=== PATIENT | female | born 1950 | race Caucasian/White ===

== ENCOUNTER 2020-12-29 21:55 | Inpatient (IN) ==
[2020-12-29 22:47] LABS: Basophils % 0.6 % (0.0-0.8); Eosinophils # 0.2 10*3/uL (0.0-0.87); Eosinophils % 2.2 % (0.00-10.9); Hematocrit 41.3 VOL% (35.7-47.0); Hemoglobin 13.4 GM/DL (12.0-16.0); Immature Granulocytes % 0.4 %; Immature Granulocytes Absolute 0.03 #; Lymphocytes % 29.7 % (21.3-54.2); Mean Corpuscular HGB Conc 32.4 GM/DL (32-36); Mean Corpuscular Volume 101.2 FL (87-102); Mean Platelet Volume 10.9 FL (9.6-12.0); Monocytes % 11.1 % (1.7-12.7); Platelet Count 215 T/CUMM (130-400); Red Blood Count 4.08 MC/CUMM (3.8-5.5); Red Cell Distribution Width 13.4 % (9.3-17.3); White Blood Count 6.8 T/CUMM (4-12)
[2020-12-29 23:06] LABS: Alanine Aminotransferase 12 U/L (13-56); Albumin 3.6 G/DL (3.4-5.0); Alkaline Phosphatase 77 U/L (45-117); Aspartate Amino Transferase 14 U/L (0-37); Bilirubin,Total < 0.39 MG/DL (0.20-1.00); Blood Urea Nitrogen 18 MG/DL (7-18); Calcium 9.2 MG/DL (8.5-10.1); Carbon Dioxide 35 MMOL/L (21-32); Estimated Glom Filtration Rate 67 ML/MIN; Glucose 85 MG/DL (74-106); Potassium 3.9 MMOL/L (3.5-5.1); Sodium 143 MMOL/L (136-145); Total Protein 6.6 G/DL (6.4-8.2)
[2020-12-29 23:32] LABS: PT Patient Result 10.9 SECS (10.5-12.0); Partial Thromboplastin Time 28.1 SECS (23.9-33.8)
[2020-12-30] MEDS ORDERED: MORPHINE 2 MG/1 ML SYRINGE IV STA (00:09)
[2020-12-30] MEDS ORDERED: ONDANSETRON 4 MG/2 ML VIAL IV STA (00:09)
[2020-12-30] MEDS ORDERED: MAGNESIUM SULF RIDER 2 GM/50 ML PREMIX IV PRN (01:18)
[2020-12-30] MEDS ORDERED: MAGNESIUM SULF RIDER 4 GM/100 ML PREMIX IV PRN (01:18)
[2020-12-30] MEDS ORDERED: DEXTROSE 50% 25 GM/50 ML VIAL IV PRN (01:18)
[2020-12-30] MEDS ORDERED: GLUCAGON 1 MG VIAL IM PRN (01:18)
[2020-12-30] MEDS ORDERED: guaiFENesin/DM ER 600-30 MG TABLET PO PRN (01:25)
[2020-12-30] MEDS ORDERED: POTASSIUM CHLORIDE RIDER 10 MEQ/100 ML PREMIX IV PRN (01:25)
[2020-12-30] MEDS ORDERED: ACETAMINOPHEN 325 MG TABLET PO PRN (01:25)
[2020-12-30] MEDS ORDERED: ONDANSETRON 4 MG/2 ML VIAL IV PRN (01:25)
[2020-12-30] MEDS ORDERED: HYDROmorphone 2 MG/1 ML VIAL IV PRN (01:25)
[2020-12-30] MEDS ORDERED: PNEUMOCOCCAL VACCINE (13 VALENT) 0.5 ML SYRINGE IM ONE (02:33)
[2020-12-30] MEDS ORDERED: INFLUENZA VIRUS VACCINE 0.5 ML SYRINGE IM ONE (02:33)
[2020-12-30] MEDS: PANTOPRAZOLE 40 MG VIAL IV SCH ×3 (02:33→20:35)
[2020-12-30] MEDS: SODIUM CHLORIDE 0.9% 1,000 ML IV SCH ×3 (02:36→23:22)
[2020-12-30] MEDS ORDERED: ZALEPLON 5 MG CAPSULE PO PRN (02:54)
[2020-12-30 05:18] LABS: Basophils % 0.4 % (0.0-0.8); Eosinophils # 0.2 10*3/uL (0.0-0.87); Eosinophils % 3.3 % (0.00-10.9); Hematocrit 36.4 VOL% (35.7-47.0); Hemoglobin 11.6 GM/DL (12.0-16.0); Immature Granulocytes % 0.4 %; Immature Granulocytes Absolute 0.03 #; Lymphocytes # 1.9 10*3/uL (1.4-4.0); Lymphocytes % 27.6 % (21.3-54.2); Mean Corpuscular HGB Conc 31.9 GM/DL (32-36); Mean Corpuscular Volume 103.1 FL (87-102); Mean Platelet Volume 11.4 FL (9.6-12.0); Monocytes % 10.4 % (1.7-12.7); Neutrophils % 57.9 % (38.7-73.9); Platelet Count 186 T/CUMM (130-400); Red Blood Count 3.53 MC/CUMM (3.8-5.5); Red Cell Distribution Width 13.5 % (9.3-17.3); White Blood Count 6.9 T/CUMM (4-12)
[2020-12-30 05:53] LABS: Alanine Aminotransferase 11 U/L (13-56); Albumin 2.9 G/DL (3.4-5.0); Alkaline Phosphatase 63 U/L (45-117); Aspartate Amino Transferase 12 U/L (0-37); Blood Urea Nitrogen 19 MG/DL (7-18); Calcium 8.2 MG/DL (8.5-10.1); Carbon Dioxide 27 MMOL/L (21-32); Estimated Glom Filtration Rate 83 ML/MIN; Glucose 93 MG/DL (74-106); HDL Cholesterol 57 MG/DL (40-60); Osmolality,Calculated 282.3 MOS/KG (273-304); Potassium 3.8 MMOL/L (3.5-5.1); Risk Ratio 1.89; Sodium 141 MMOL/L (136-145); Thyroid Stimulating Hormone < 0.005 uIU/ml (0.358-3.74); Total Protein 5.5 G/DL (6.4-8.2); Triglycerides 33 MG/DL (2-150); VLDL Cholesterol 6.6 MG/DL
[2020-12-30] MEDS: ALBUTEROL/IPRATROPIUM 3 ML NEB RESP TX SCH ×3 (07:22→19:25)
[2020-12-30 09:06] LABS: Hematocrit 40.6 VOL% (35.7-47.0); Hemoglobin 13.1 GM/DL (12.0-16.0)
[2020-12-30 15:12] LABS: Hematocrit 39.1 VOL% (35.7-47.0); Hemoglobin 12.5 GM/DL (12.0-16.0)
[2020-12-30 20:53] LABS: Hematocrit 38.5 VOL% (35.7-47.0); Hemoglobin 12.2 GM/DL (12.0-16.0)
[2020-12-31] MEDS: ALBUTEROL/IPRATROPIUM 3 ML NEB RESP TX SCH ×4 (01:16→19:37)
[2020-12-31 05:56] LABS: Basophils % 0.3 % (0.0-0.8); Eosinophils # 0.1 10*3/uL (0.0-0.87); Eosinophils % 1.5 % (0.00-10.9); Hematocrit 39.8 VOL% (35.7-47.0); Hemoglobin 12.7 GM/DL (12.0-16.0); Immature Granulocytes % 0.4 %; Immature Granulocytes Absolute 0.03 #; Lymphocytes # 2.2 10*3/uL (1.4-4.0); Lymphocytes % 29.8 % (21.3-54.2); Mean Corpuscular HGB Conc 31.9 GM/DL (32-36); Mean Corpuscular Volume 104.5 FL (87-102); Mean Platelet Volume 11.8 FL (9.6-12.0); Monocytes % 8.6 % (1.7-12.7); Neutrophils % 59.4 % (38.7-73.9); Platelet Count 203 T/CUMM (130-400); Red Blood Count 3.81 MC/CUMM (3.8-5.5); Red Cell Distribution Width 13.4 % (9.3-17.3); White Blood Count 7.5 T/CUMM (4-12)
[2020-12-31] MEDS: POLYETHYLENE GLYCOL POWDER 17 GM PACK PO SCH ×3 (08:24→20:57)
[2020-12-31] MEDS: PANTOPRAZOLE 40 MG VIAL IV SCH ×2 (08:25→20:58)
[2020-12-31] MEDS: SODIUM CHLORIDE 0.9% 1,000 ML IV SCH (08:26)
[2020-12-31 08:57] LABS: Calcium 8.9 MG/DL (8.5-10.1); Osmolality,Calculated 281.1 MOS/KG (273-304); Potassium 3.7 MMOL/L (3.5-5.1)
[2020-12-31] MEDS ORDERED: PNEUMOCOCCAL VACCINE (13 VALENT) 0.5 ML SYRINGE IM ONE (09:00)
[2020-12-31] MEDS ORDERED: INFLUENZA VIRUS VACCINE 0.5 ML SYRINGE IM ONE (09:00)
[2020-12-31] MEDS: CIPROFLOXACIN INJ 400 MG/200 ML PREMIX IV SCH ×2 (09:20→20:59)
[2020-12-31] MEDS: metroNIDAZOLE INJ 500 MG/100 ML PREMIX IV SCH ×2 (10:41→18:19)
[2020-12-31] MEDS: GABAPENTIN 100 MG CAPSULE PO SCH (15:44)
[2020-12-31] MEDS: clonazePAM 0.5 MG TABLET PO PRN ×2 (15:44→20:57)
[2020-12-31] MEDS: DULoxetine 30 MG CAPSULE PO SCH (15:44)
[2020-12-31 19:16] LABS: Free T4 (Free Thyroxine) 1.11 NG/DL (0.76-1.46)
[2021-01-01] MEDS: ALBUTEROL/IPRATROPIUM 3 ML NEB RESP TX SCH ×4 (00:43→19:35)
[2021-01-01] MEDS: metroNIDAZOLE INJ 500 MG/100 ML PREMIX IV SCH ×2 (02:59→10:56)
[2021-01-01] MEDS: SODIUM CHLORIDE 0.9% 1,000 ML IV SCH ×3 (03:01→22:06)
[2021-01-01 06:59] LABS: Basophils % 0.6 % (0.0-0.8); Eosinophils # 0.2 10*3/uL (0.0-0.87); Eosinophils % 3.7 % (0.00-10.9); Hematocrit 36.2 VOL% (35.7-47.0); Hemoglobin 11.8 GM/DL (12.0-16.0); Immature Granulocytes % 0.2 %; Immature Granulocytes Absolute 0.01 #; Lymphocytes # 1.3 10*3/uL (1.4-4.0); Lymphocytes % 24.3 % (21.3-54.2); Mean Corpuscular HGB Conc 32.6 GM/DL (32-36); Mean Corpuscular Volume 102.3 FL (87-102); Mean Platelet Volume 11.3 FL (9.6-12.0); Monocytes % 12.1 % (1.7-12.7); Neutrophils % 59.1 % (38.7-73.9); Platelet Count 178 T/CUMM (130-400); Red Blood Count 3.54 MC/CUMM (3.8-5.5); Red Cell Distribution Width 13.3 % (9.3-17.3); White Blood Count 5.4 T/CUMM (4-12)
[2021-01-01 07:13] LABS: Calcium 8.5 MG/DL (8.5-10.1); Osmolality,Calculated 286.7 MOS/KG (273-304); Potassium 3.3 MMOL/L (3.5-5.1)
[2021-01-01] MEDS: GABAPENTIN 100 MG CAPSULE PO SCH (08:54)
[2021-01-01] MEDS: DULoxetine 30 MG CAPSULE PO SCH (08:54)
[2021-01-01] MEDS: POLYETHYLENE GLYCOL POWDER 17 GM PACK PO SCH ×2 (08:54→20:31)
[2021-01-01] MEDS: PANTOPRAZOLE 40 MG VIAL IV SCH ×2 (08:58→20:26)
[2021-01-01] MEDS: CIPROFLOXACIN INJ 400 MG/200 ML PREMIX IV SCH (08:58)
[2021-01-01] MEDS: POTASSIUM CHLORIDE 20 MEQ TABLET PO PRN ×3 (10:34→14:52)
[2021-01-01] MEDS: metroNIDAZOLE 500 MG TABLET PO SCH ×2 (20:15→20:32)
[2021-01-01] MEDS: clonazePAM 0.5 MG TABLET PO PRN (20:31)
[2021-01-01] MEDS: CIPROFLOXACIN 500 MG TABLET PO SCH (20:32)
[2021-01-01] MEDS: MAGNESIUM CHLORIDE 64 MG TABLET PO SCH (20:32)
[2021-01-02] MEDS: ALBUTEROL/IPRATROPIUM 3 ML NEB RESP TX SCH ×4 (00:05→19:53)
[2021-01-02 06:28] LABS: Basophils % 0.5 % (0.0-0.8); Eosinophils # 0.3 10*3/uL (0.0-0.87); Eosinophils % 4.5 % (0.00-10.9); Hematocrit 32.4 VOL% (35.7-47.0); Hemoglobin 10.5 GM/DL (12.0-16.0); Immature Granulocytes % 0.3 %; Immature Granulocytes Absolute 0.02 #; Lymphocytes # 1.4 10*3/uL (1.4-4.0); Lymphocytes % 23.7 % (21.3-54.2); Mean Corpuscular HGB Conc 32.4 GM/DL (32-36); Mean Corpuscular Volume 101.3 FL (87-102); Mean Platelet Volume 11.6 FL (9.6-12.0); Monocytes % 12.7 % (1.7-12.7); Neutrophils % 58.3 % (38.7-73.9); Platelet Count 178 T/CUMM (130-400); Red Cell Distribution Width 13.5 % (9.3-17.3)
[2021-01-02 06:45] LABS: Calcium 8.4 MG/DL (8.5-10.1); Osmolality,Calculated 286.8 MOS/KG (273-304); Potassium 3.5 MMOL/L (3.5-5.1)
[2021-01-02 07:17] LABS: Platelet Estimate Normal
[2021-01-02 07:18] LABS: Anisocytosis 1+
[2021-01-02 07:19] LABS: Macrocytosis 1+
[2021-01-02] MEDS: MAGNESIUM CHLORIDE 64 MG TABLET PO SCH ×2 (08:23→21:03)
[2021-01-02] MEDS: CIPROFLOXACIN 500 MG TABLET PO SCH ×2 (08:23→21:03)
[2021-01-02] MEDS: clonazePAM 0.5 MG TABLET PO PRN ×2 (08:23→21:03)
[2021-01-02] MEDS: metroNIDAZOLE 500 MG TABLET PO SCH ×3 (08:23→21:03)
[2021-01-02] MEDS: GABAPENTIN 100 MG CAPSULE PO SCH (08:23)
[2021-01-02] MEDS: POLYETHYLENE GLYCOL POWDER 17 GM PACK PO SCH ×2 (08:24→21:04)
[2021-01-02] MEDS: PANTOPRAZOLE 40 MG VIAL IV SCH ×2 (08:24→20:58)
[2021-01-02] MEDS: DULoxetine 30 MG CAPSULE PO SCH (08:26)
[2021-01-02 10:25] LABS: Hematocrit 35.8 VOL% (35.7-47.0); Hemoglobin 11.8 GM/DL (12.0-16.0)
[2021-01-02 19:11] LABS: Hematocrit 37.7 VOL% (35.7-47.0); Hemoglobin 12.4 GM/DL (12.0-16.0)
[2021-01-03] MEDS: ALBUTEROL/IPRATROPIUM 3 ML NEB RESP TX SCH ×2 (00:52→07:49)
[2021-01-03 03:51] LABS: Basophils % 0.5 % (0.0-0.8); Eosinophils # 0.2 10*3/uL (0.0-0.87); Eosinophils % 3.8 % (0.00-10.9); Hematocrit 33.7 VOL% (35.7-47.0); Hemoglobin 10.9 GM/DL (12.0-16.0); Immature Granulocytes % 0.3 %; Immature Granulocytes Absolute 0.02 #; Lymphocytes # 1.9 10*3/uL (1.4-4.0); Lymphocytes % 32.9 % (21.3-54.2); Mean Corpuscular HGB Conc 32.3 GM/DL (32-36); Mean Corpuscular Volume 101.8 FL (87-102); Mean Platelet Volume 11.5 FL (9.6-12.0); Monocytes % 11.7 % (1.7-12.7); Neutrophils % 50.8 % (38.7-73.9); Platelet Count 176 T/CUMM (130-400); Red Blood Count 3.31 MC/CUMM (3.8-5.5); Red Cell Distribution Width 13.6 % (9.3-17.3); White Blood Count 5.8 T/CUMM (4-12)
[2021-01-03 04:13] LABS: Hypochromasia 1+; Microcytosis 1+; Platelet Estimate Adequate
[2021-01-03 04:17] LABS: Calcium 8.4 MG/DL (8.5-10.1); Osmolality,Calculated 284.8 MOS/KG (273-304); Potassium 3.4 MMOL/L (3.5-5.1)
[2021-01-03] MEDS ORDERED: LACTATED RINGERS 1,000 ML IV SCH (07:00)
[2021-01-03] MEDS ORDERED: propofoL 200 MG/20 ML VIAL IV ONE (08:20)
[2021-01-03] MEDS ORDERED: LIDOCAINE 2% 5 ML VIAL ONE (08:20)
[2021-01-03] MEDS: DULoxetine 30 MG CAPSULE PO SCH (09:43)
[2021-01-03] MEDS: MAGNESIUM CHLORIDE 64 MG TABLET PO SCH (09:43)
[2021-01-03] MEDS: metroNIDAZOLE 500 MG TABLET PO SCH (09:43)
[2021-01-03] MEDS: CIPROFLOXACIN 500 MG TABLET PO SCH (09:43)
[2021-01-03] MEDS: POLYETHYLENE GLYCOL POWDER 17 GM PACK PO SCH (09:43)
[2021-01-03] MEDS: GABAPENTIN 100 MG CAPSULE PO SCH (09:43)
[2021-01-03] MEDS ORDERED: POTASSIUM CHLORIDE 20 MEQ TABLET PO ONE (10:10)
[2021-01-03 11:04] VITALS: BP 129/62
[2021-01-03] MEDS: PANTOPRAZOLE 40 MG VIAL IV SCH (11:29)
[2021-01-06 09:46] LABS: Dopamine, Plasma < 25 pg/mL; Epinephrine, Plasma < 25 pg/mL; Norepinephrine, Plasma 400 pg/mL
[2021-01-06 11:36] LABS: Metanephrine, Free < 0.20 nmol/L (<0.50); Normetanephrine, Free 0.38 nmol/L (<0.90)
[2021-01-06 14:36] LABS: Renin Activity < 0.6 ng/mL/h
== END 2021-01-03 14:00 | disposition home or self-care (01) | DRG 378 ==
LOC: N.ED 21:55 → N.EDINP 12-30 01:18 → INTOOBSV 12-30 01:18 → N.3E 12-30 02:02 → SUATTDRO 12-30 03:23 → N.3E 12-30 19:38 → SUATTDRO 01-02 09:42
PROVIDERS: ADMIT Internal Medicine; ATTEND Internal Medicine Geriatric Medicine

== ENCOUNTER 2021-08-02 23:59 | Inpatient (IN) ==
[2021-08-03] MEDS ORDERED: SODIUM CHLORIDE 0.9% 1,000 ML IV STA (00:45)
[2021-08-03] MEDS ORDERED: ONDANSETRON 4 MG/2 ML VIAL IV STA (00:45)
[2021-08-03 00:53] LABS: Basophils % 0.3 % (0.0-0.8); Eosinophils # 0.1 10*3/uL (0.0-0.87); Eosinophils % 0.3 % (0.00-10.9); Hematocrit 40.2 VOL% (35.7-47.0); Hemoglobin 13.3 GM/DL (12.0-16.0); Immature Granulocytes % 0.5 %; Immature Granulocytes Absolute 0.07 #; Lymphocytes # 0.6 10*3/uL (1.4-4.0); Lymphocytes % 4.3 % (21.3-54.2); Mean Corpuscular HGB Conc 33.1 GM/DL (32-36); Mean Corpuscular Volume 99.5 FL (87-102); Mean Platelet Volume 11.4 FL (9.6-12.0); Monocytes # 0.7 10*3/uL (0.11-0.8); Monocytes % 4.5 % (1.7-12.7); Neutrophils % 90.1 % (38.7-73.9); Platelet Count 152 T/CUMM (130-400); Red Blood Count 4.04 MC/CUMM (3.8-5.5); Red Cell Distribution Width 14.2 % (9.3-17.3); White Blood Count 14.3 T/CUMM (4-12)
[2021-08-03 00:59] LABS: Bacteria,Urine Occasional /HPF (Few); Hyaline Casts,Urine 75 /LPF (0-3); Mucus,Urine Few /LPF (Occasional); RBC,Urine 4 /HPF (0-4); Squamous Epithelial Cell,Urine Occasional /HPF (0-10)
[2021-08-03 01:00] LABS: Bilirubin,Urine Moderate mg/dL (Negative); Glucose,Urine (UA) Negative (Negative); Ketones,Urine 15 mg/dL (Negative); Nitrite,Urine Positive (Negative); Protein,Urine 100 mg/dL (Negative); Urine Appearance Clear (Clear); Urine Color Dark Yellow (Yellow); Urine Specific Gravity 1.025 (1.001-1.035); Urine pH 5.5 (4.5-8.0)
[2021-08-03 01:01] LABS: Blood, Urine Trace mg/dL (Negative)
[2021-08-03 01:03] LABS: PT Patient Result 11.3 SECS (10.5-12.0)
[2021-08-03 01:09] LABS: Barbiturates Screen,Urine Negative (Negative); Benzodiazepines Screen,Urine Negative (Negative); Cannabinoid Screen,Urine Negative (Negative); Opiate Screen,Urine Negative (Negative); Phencyclidine Screen,Urine Negative (Negative)
[2021-08-03 01:23] LABS: Eosinophils 1 % (0-10); Lymphocytes 4 % (20-55); Platelet Estimate Adequate; Total Cells Counted 100
[2021-08-03 01:27] LABS: Albumin 3.8 G/DL (3.4-5.0); Bilirubin,Total 1.2 MG/DL (0.20-1.00); Calcium 9.6 MG/DL (8.5-10.1); Osmolality,Calculated 267.5 MOS/KG (273-304); Potassium 3.4 MMOL/L (3.5-5.1); Total Protein 6.8 G/DL (6.4-8.2)
[2021-08-03] MEDS ORDERED: methylPREDNISolone SOD SUC 125 MG/2 ML VIAL IV STA (01:28)
[2021-08-03] MEDS ORDERED: cefTRIAXone 1,000 MG in SODIUM CHLORIDE 0.9% 100 ML IV STA (01:28)
[2021-08-03] MEDS ORDERED: LEVOFLOXACIN INJ 750 MG/150 ML PREMIX IV STA (01:36)
[2021-08-03] MEDS ORDERED: DILTIAZEM 50 MG/10 ML VIAL IV STA ×2 (01:40→01:43)
[2021-08-03] MEDS ORDERED: DILTIAZEM 25 MG/5 ML VIAL IV ONE (01:44)
[2021-08-03] MEDS ORDERED: ENOXAPARIN 60 MG/0.6 ML SYRINGE SUBCUT STA (02:00)
[2021-08-03] MEDS ORDERED: ACETAMINOPHEN 325 MG TABLET PO PRN (02:00)
[2021-08-03] MEDS ORDERED: DEXTROSE 10% 250 ML BAG IV PRN (02:00)
[2021-08-03] MEDS ORDERED: GLUCAGON 1 MG VIAL IM PRN (02:00)
[2021-08-03] MEDS ORDERED: NICOTINE 21 MG/24 HR PATCH TRANSDERM PRN (02:00)
[2021-08-03] MEDS ORDERED: POTASSIUM CHLORIDE 20 MEQ TABLET PO STA (02:00)
[2021-08-03] MEDS: DILTIAZEM INJ 100 MG in SODIUM CHLORIDE 0.9% 100 ML IV SCH (02:32)
[2021-08-03] MEDS: SODIUM CHLORIDE 0.9% 1,000 ML IV SCH ×2 (02:33→13:02)
[2021-08-03] MEDS ORDERED: ALBUTEROL/IPRATROPIUM 3 ML NEB RESP TX ONE (02:59)
[2021-08-03] MEDS ORDERED: SODIUM CHLORIDE 0.9% 500 ML IV STA (04:53)
[2021-08-03 05:11] LABS: Alanine Aminotransferase 95 U/L (13-56); Alkaline Phosphatase 69 U/L (45-117); Aspartate Amino Transferase 88 U/L (0-37); Bilirubin,Indirect 0.3 MG/DL (0.0-1.0); Cholesterol 98 MG/DL (50-200); HDL Cholesterol 65 MG/DL (40-60); Risk Ratio 1.51; Thyroid Stimulating Hormone < 0.005 uIU/ml (0.358-3.74); Total Protein 5.2 G/DL (6.4-8.2); Triglycerides 29 MG/DL (2-150); VLDL Cholesterol 5.8 MG/DL
[2021-08-03] MEDS: ALBUTEROL/IPRATROPIUM 3 ML NEB RESP TX SCH ×3 (07:31→19:53)
[2021-08-03 08:57] LABS: Free T4 (Free Thyroxine) 1.41 NG/DL (0.76-1.46)
[2021-08-03] MEDS ORDERED: ALBUTEROL 2.5 MG/3 ML NEB RESP TX PRN (09:50)
[2021-08-03] MEDS: PANTOPRAZOLE 40 MG TABLET PO SCH (09:50)
[2021-08-03] MEDS: APIXABAN 5 MG TABLET PO SCH ×2 (09:50→21:06)
[2021-08-03 10:10] LABS: Hepatitis B Core IgM Quant 0.17 Index; Hepatitis B Surface Ag Quant < 0.10 Index; Hepatitis B Surface Ag Result Non-Reactive (NonReactive); Hepatitis C Virus Ab Quant 0.14 Index; Hepatitis C Virus Ab Result Non-Reactive (NonReactive)
[2021-08-03] MEDS: GABAPENTIN 100 MG CAPSULE PO SCH (10:58)
[2021-08-03] MEDS: FLUoxetine 20 MG CAPSULE PO SCH (10:58)
[2021-08-03] MEDS: methylPREDNISolone SOD SUC 125 MG/2 ML VIAL IV SCH (13:15)
[2021-08-03] MEDS: clonazePAM 0.5 MG TABLET PO PRN (18:48)
[2021-08-03] MEDS ORDERED: MELATONIN 10MG PO PRN (19:35)
[2021-08-03] MEDS: METOPROLOL TARTRATE 25 MG TABLET PO SCH (21:06)
[2021-08-04] MEDS: ALBUTEROL/IPRATROPIUM 3 ML NEB RESP TX SCH ×4 (00:15→19:35)
[2021-08-04] MEDS: LEVOFLOXACIN INJ 750 MG/150 ML PREMIX IV SCH (02:52)
[2021-08-04] MEDS: methylPREDNISolone SOD SUC 125 MG/2 ML VIAL IV SCH ×2 (02:53→13:00)
[2021-08-04 05:09] LABS: Basophils % 0.1 % (0.0-0.8); Eosinophils % 0.1 % (0.00-10.9); Hematocrit 35.3 VOL% (35.7-47.0); Hemoglobin 11.3 GM/DL (12.0-16.0); Immature Granulocytes % 0.6 %; Immature Granulocytes Absolute 0.07 #; Lymphocytes # 0.7 10*3/uL (1.4-4.0); Lymphocytes % 5.9 % (21.3-54.2); Mean Corpuscular Volume 102.9 FL (87-102); Mean Platelet Volume 11.8 FL (9.6-12.0); Monocytes # 0.8 10*3/uL (0.11-0.8); Monocytes % 6.2 % (1.7-12.7); Neutrophils % 87.1 % (38.7-73.9); Platelet Count 144 T/CUMM (130-400); Red Blood Count 3.43 MC/CUMM (3.8-5.5); Red Cell Distribution Width 14.8 % (9.3-17.3); White Blood Count 12.1 T/CUMM (4-12)
[2021-08-04 05:31] LABS: Alanine Aminotransferase 84 U/L (13-56); Albumin 2.9 G/DL (3.4-5.0); Alkaline Phosphatase 74 U/L (45-117); Aspartate Amino Transferase 41 U/L (0-37); Bilirubin,Total < 0.39 MG/DL (0.20-1.00); Blood Urea Nitrogen 20 MG/DL (7-18); Calcium 8.5 MG/DL (8.5-10.1); Carbon Dioxide 24 MMOL/L (21-32); Chloride 116 MMOL/L (98-107); Estimated Glom Filtration Rate 78 ML/MIN; Glucose 126 MG/DL (74-106); Osmolality,Calculated 290.8 MOS/KG (273-304); Potassium 4.2 MMOL/L (3.5-5.1); Sodium 144 MMOL/L (136-145); Total Protein 5.7 G/DL (6.4-8.2)
[2021-08-04] MEDS ORDERED: REGADENOSON 0.4 MG/5 ML SYRINGE IV ONE (08:32)
[2021-08-04] MEDS: SODIUM CHLORIDE 0.9% 1,000 ML IV SCH ×3 (09:53→19:08)
[2021-08-04] MEDS: DILTIAZEM INJ 100 MG in SODIUM CHLORIDE 0.9% 100 ML IV SCH (10:06)
[2021-08-04] MEDS: FLUoxetine 20 MG CAPSULE PO SCH (10:23)
[2021-08-04] MEDS: clonazePAM 0.5 MG TABLET PO PRN (10:23)
[2021-08-04] MEDS: METOPROLOL TARTRATE 25 MG TABLET PO SCH ×2 (10:24→20:55)
[2021-08-04] MEDS: GABAPENTIN 100 MG CAPSULE PO SCH (10:24)
[2021-08-04] MEDS: APIXABAN 5 MG TABLET PO SCH ×2 (10:26→20:55)
[2021-08-04] MEDS: PANTOPRAZOLE 40 MG TABLET PO SCH (10:26)
[2021-08-05] MEDS: ALBUTEROL/IPRATROPIUM 3 ML NEB RESP TX SCH ×2 (00:06→07:35)
[2021-08-05] MEDS: methylPREDNISolone SOD SUC 125 MG/2 ML VIAL IV SCH ×2 (00:41→11:28)
[2021-08-05] MEDS: LEVOFLOXACIN INJ 750 MG/150 ML PREMIX IV SCH (01:26)
[2021-08-05] MEDS: SODIUM CHLORIDE 0.9% 1,000 ML IV SCH ×2 (04:34→15:43)
[2021-08-05 04:35] LABS: Basophils % 0.1 % (0.0-0.8); Hematocrit 36.2 VOL% (35.7-47.0); Hemoglobin 11.6 GM/DL (12.0-16.0); Immature Granulocytes % 0.7 %; Immature Granulocytes Absolute 0.07 #; Lymphocytes # 0.5 10*3/uL (1.4-4.0); Mean Corpuscular Volume 102.5 FL (87-102); Monocytes # 0.4 10*3/uL (0.11-0.8); Monocytes % 3.8 % (1.7-12.7); Neutrophils % 90.4 % (38.7-73.9); Platelet Count 146 T/CUMM (130-400); Red Blood Count 3.53 MC/CUMM (3.8-5.5); Red Cell Distribution Width 14.8 % (9.3-17.3); White Blood Count 10.3 T/CUMM (4-12)
[2021-08-05 04:49] LABS: Alanine Aminotransferase 93 U/L (13-56); Albumin 2.8 G/DL (3.4-5.0); Alkaline Phosphatase 70 U/L (45-117); Aspartate Amino Transferase 36 U/L (0-37); Bilirubin,Total < 0.39 MG/DL (0.20-1.00); Blood Urea Nitrogen 22 MG/DL (7-18); Calcium 8.4 MG/DL (8.5-10.1); Carbon Dioxide 22 MMOL/L (21-32); Chloride 116 MMOL/L (98-107); Estimated Glom Filtration Rate 83 ML/MIN; Glucose 124 MG/DL (74-106); Sodium 143 MMOL/L (136-145); Total Protein 5.5 G/DL (6.4-8.2)
[2021-08-05 05:28] LABS: Platelet Estimate Adequate
[2021-08-05] MEDS ORDERED: BUTALBITAL/ACETAMIN/CAFFEINE 50-325-40 MG TABLET PO PRN (10:09)
[2021-08-05] MEDS ORDERED: MAGNESIUM HYDROXIDE SUSP 30 ML UDCUP PO ONE (10:10)
[2021-08-05] MEDS ORDERED: DOCUSATE/SENNA 50-8.6 MG TABLET PO SCH (10:10)
[2021-08-05] MEDS ORDERED: LACTULOSE 20 GM/30 ML UDCUP PO ONE (10:11)
[2021-08-05] MEDS: APIXABAN 5 MG TABLET PO SCH (10:21)
[2021-08-05] MEDS: DILTIAZEM INJ 100 MG in SODIUM CHLORIDE 0.9% 100 ML IV SCH (10:21)
[2021-08-05] MEDS: GABAPENTIN 100 MG CAPSULE PO SCH (10:22)
[2021-08-05] MEDS: FLUoxetine 20 MG CAPSULE PO SCH (10:22)
[2021-08-05] MEDS: PANTOPRAZOLE 40 MG TABLET PO SCH (10:22)
[2021-08-05] MEDS: METOPROLOL TARTRATE 25 MG TABLET PO SCH (10:22)
[2021-08-05 12:01] VITALS: BP 154/72
[2021-08-05 12:14] LABS: Thyroglobulin Antibody < 1.8 IU/mL (<4.0)
== END 2021-08-05 15:45 | disposition home or self-care (01) | DRG 309 ==
LOC: N.ED 23:59 → N.EDINP 08-03 02:00 → N.TELEN 08-03 13:15
PROVIDERS: ADMIT Internal Medicine; ATTEND Internal Medicine